=== PATIENT | female | born 1970 | race Two or more races ===

== ENCOUNTER 2018-01-04 15:20 | Emergency (ER) | payer OTHER ==
[~2018-01-04] VITALS: Ht 162.6 cm; Wt 77.1 kg
[2018-01-04] MEDS ORDERED: HUMALOG100 UNIT/1 (15:43)
[2018-01-04] MEDS ORDERED: PRAVASTATIN SOD40 MG (15:43)
[2018-01-04] MEDS ORDERED: AVAPRO75 MG (15:43)
[2018-01-04] MEDS ORDERED: BACTRIM DS TAB1 EACH PO (17:00)
== END 2018-01-04 17:04 | disposition home or self-care (01) ==
LOC: ER 15:20 → EMR PED 15:38 → ER 17:04
DX: S50.872A Other superficial bite of left forearm, initial encounter (principal); L03.114 Cellulitis of left upper limb; W57.XXXA Bitten or stung by nonvenomous insect and other nonvenomous arthropods, initial encounter; Y93.89 Activity, other specified; Y92.89 Other specified places as the place of occurrence of the external cause; Y99.8 Other external cause status

== ENCOUNTER → 2024-08-13 | Emergency (ER) | payer OTHER ==
[~2024-08-13] VITALS: Ht 162.6 cm; Wt 73.5 kg
[~2024-08-13] MED LIST: AVAPRO75 MG; BACTRIM DS TAB1 EACH PO; HUMALOG100 UNIT/1; LOSARTAN POTASS50 MG; MECLIZINE HCL 25 MG TABLET PO STA; PRAVASTATIN SOD40 MG
[2024-08-13 15:02] LABS: HEMATOCRIT 41.4 % (36.0-45.00); MEAN CELL VOLUME 89.5 fL (80.00-100.00); MEAN CORPUSCULAR HEMOGLOBIN 30.3 pg (27.00-32.0); MEAN CORPUSCULAR HGB CONC 33.9 g/dl (32.0-36.0); PLATELET COUNT 320 K/uL (150-450); RED BLOOD COUNT 4.63 M/uL (4.00-6.00); RED CELL DISTRIBUTION WIDTH 14.7 % (11.5-14.5)
[2024-08-13 15:24] LABS: CALCIUM 9.6 mg/dL (8.5-10.1); CREATININE SERUM 1.03 mg/dL (0.55-1.02); GFR 55.63; POTASSIUM 4.54 mEq/L (3.5-5.1)
== END | disposition home or self-care (01) ==
LOC: ER 13:26
PROVIDERS: General Practice
DX: R42 Dizziness and giddiness (principal); Z91.013 Allergy to seafood